=== PATIENT | male | born 1965 | race African-American/Black ===

== ENCOUNTER 2016-05-31 16:14 | Inpatient (IN) | payer MEDICARE, OTHER ==
[~2016-05-31] VITALS: Ht 180.3 cm; Wt 85.0 kg
[~2016-05-31 16:14] MED LIST: MELO15TA2 PO
[2016-05-31] MEDS ORDERED: ONDANSETRON HCL 4 MG/2 ML VIAL IVP ONE (16:30)
[2016-05-31] MEDS ORDERED: SODIUM CHLORIDE 0.9% FLUSH 5 ML FLUSH IVF PRN (16:30)
[2016-05-31] MEDS ORDERED: SODIUM CHLOR 0.9% 1000 ML INJ 1,000 ML IV ONE ×2 (16:30→18:30)
[2016-05-31] MEDS ORDERED: HYDROmorphone HCL PF 2 MG/ML VIAL IVS ONE (16:30)
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
[2016-05-31 16:36] VITALS: BP 128/99; PULSE 72; RESP 20; TEMP 98.3; O2SAT 100
[2016-05-31 16:45] LABS: AUTOMATED NEUTROPHIL # 6.6 TH/MM3 (1.8-7.7); BASOPHIL # 0.1 TH/MM3 (0-0.2); BASOPHIL % 0.7 % (0.0-2.0); EOSINOPHIL # 0.1 TH/MM3 (0-0.4); EOSINOPHIL % 0.6 % (0.0-4.0); HEMATOCRIT 46.5 % (39.0-51.0); HEMO FLAGS DIFF FINAL; LYMPH % 24.4 % (9.0-44.0); LYMPHOCYTE # 2.4 TH/MM3 (1.0-4.8); MEAN CELL VOLUME 90.2 FL (80.0-100.0); MEAN CORPUSCULAR HEMOGLOBIN 30.3 PG (27.0-34.0); MEAN CORPUSCULAR HGB CONC 33.6 % (32.0-36.0); MONO % 6.8 % (0.0-8.0); NEUT % 67.5 % (16.0-70.0); PLATELET COUNT 249 TH/MM3 (150-450); RED BLOOD COUNT 5.15 MIL/MM3 (4.50-5.90); RED CELL DISTRIBUTION WIDTH 14.1 % (11.6-17.2); WHITE BLOOD COUNT 9.8 TH/MM3 (4.0-11.0)
[2016-05-31 17:51] LABS: ALKALINE PHOSPHATASE 57 U/L (45-117); ALT (GPT) 32 U/L (12-78); ANION GAP 14 MEQ/L (5-15); AST (GOT) 38 U/L (15-37); BICARBONATE 23.6 MEQ/L (21.0-32.0); BLOOD UREA NITROGEN 11 MG/DL (7-18); CHLORIDE 105 MEQ/L (98-107); GLOMERULAR FILTRATION RATE 70 ML/MIN (>89); SODIUM (NA) 143 MEQ/L (136-145); TOTAL BILIRUBIN ADULT 0.4 MG/DL (0.2-1.0)
[2016-05-31] MEDS ORDERED: ONDANSETRON HCL 4 MG/2 ML VIAL IV ONE (18:30)
[2016-05-31] MEDS ORDERED: MORPHINE SULFATE 4 MG/ML INJ IV PUSH ONE (18:30)
[2016-05-31 18:48] VITALS: BP 166/78; PULSE 50; RESP 20; O2SAT 94
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
[2016-05-31 19:17] VITALS: BP 145/87; PULSE 55; RESP 16; O2SAT 98
[2016-05-31] MEDS ORDERED: ONDANSETRON HCL 4 MG/2 ML VIAL IV PRN (19:30)
[2016-05-31] MEDS ORDERED: LORazepam 1 MG TAB PO PRN (19:30)
[2016-05-31] MEDS ORDERED: LORazepam 2 MG TAB PO PRN (19:30)
[2016-05-31] MEDS ORDERED: LORazepam 2 MG/ML VIAL IV PUSH PRN ×4 (19:30)
[2016-05-31] MEDS ORDERED: FLUMAZENIL 0.5 MG/5 ML VIAL IV PUSH PRN (19:30)
[2016-05-31] MEDS ORDERED: NALOXONE HCL 0.4 MG/ML AMP IV PRN (19:30)
[2016-05-31] MEDS: LACTATED RINGER'S 1000 ML INJ 1,000 ML IV SCH (20:01)
[2016-05-31] MEDS: ENOXAPARIN SODIUM 40 MG/0.4 ML SYRINGE SQ SCH (20:01)
[2016-05-31] MEDS: THIAMINE INJ 100 MG in SODIUM CHLORIDE 0.9% INJ 100 ML IV SCH (20:01)
[2016-05-31] MEDS: HYDROmorphone HCL PF 1 MG/ML VIAL IV PRN (20:10)
[2016-05-31] MEDS: KETOROLAC TROMETHAMINE 30 MG/ML (IVP) VIAL IVP SCH (21:13)
[2016-05-31] MEDS: MULTIVITAMIN INJ 10 ML, FOLIC ACID INJ 1 MG in SODIUM CHLORID 0.9% 500 ML INJ 500 ML IV SCH (21:13)
[2016-05-31 21:49] VITALS: BP 133/75; PULSE 58; O2SAT 93
[2016-06-01] MEDS: MORPHINE SULFATE 4 MG/ML INJ IV PUSH PRN ×2 (00:38→03:12)
[2016-06-01] MEDS: LACTATED RINGER'S 1000 ML INJ 1,000 ML IV SCH ×6 (00:39→21:59)
[2016-06-01 01:53] VITALS: BP 130/71; PULSE 51; O2SAT 97
[2016-06-01 04:43] VITALS: BP 145/66; PULSE 63; O2SAT 94
[2016-06-01 04:48] LABS: AUTOMATED NEUTROPHIL # 4.5 TH/MM3 (1.8-7.7); BASOPHIL % 0.4 % (0.0-2.0); EOSINOPHIL # 0.1 TH/MM3 (0-0.4); EOSINOPHIL % 2.4 % (0.0-4.0); HEMATOCRIT 43.6 % (39.0-51.0); HEMO FLAGS DIFF FINAL; LYMPH % 16.9 % (9.0-44.0); MEAN CELL VOLUME 89.5 FL (80.0-100.0); MEAN CORPUSCULAR HEMOGLOBIN 30.6 PG (27.0-34.0); MEAN CORPUSCULAR HGB CONC 34.2 % (32.0-36.0); NEUT % 74.3 % (16.0-70.0); PLATELET COUNT 208 TH/MM3 (150-450); RED BLOOD COUNT 4.87 MIL/MM3 (4.50-5.90); RED CELL DISTRIBUTION WIDTH 14.3 % (11.6-17.2); WHITE BLOOD COUNT 6.1 TH/MM3 (4.0-11.0)
[2016-06-01 05:10] LABS: ALT (GPT) 23 U/L (12-78); ANION GAP 8 MEQ/L (5-15); AST (GOT) 26 U/L (15-37); BICARBONATE 25.8 MEQ/L (21.0-32.0); BLOOD UREA NITROGEN 8 MG/DL (7-18); CHLORIDE 109 MEQ/L (98-107); GLOMERULAR FILTRATION RATE 99 ML/MIN (>89); POTASSIUM 4.4 MEQ/L (3.5-5.1); SODIUM (NA) 143 MEQ/L (136-145)
[2016-06-01 05:13] LABS: ALKALINE PHOSPHATASE 48 U/L (45-117); TOTAL BILIRUBIN ADULT 0.6 MG/DL (0.2-1.0)
[2016-06-01] MEDS: KETOROLAC TROMETHAMINE 30 MG/ML (IVP) VIAL IVP SCH ×3 (05:35→21:59)
[2016-06-01] MEDS: HYDROmorphone HCL PF 1 MG/ML VIAL IV PRN ×3 (05:39→15:53)
[2016-06-01 09:01] VITALS: BP 145/67; PULSE 50; RESP 20; O2SAT 95
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
[2016-06-01] MEDS: ENOXAPARIN SODIUM 40 MG/0.4 ML SYRINGE SQ SCH (20:00)
[2016-06-01 20:30] VITALS: BP 142/74; PULSE 62; RESP 20; TEMP 99.8; O2SAT 95
[2016-06-01] MEDS: THIAMINE INJ 100 MG in SODIUM CHLORIDE 0.9% INJ 100 ML IV SCH (20:53)
[2016-06-01] MEDS: MULTIVITAMIN INJ 10 ML, FOLIC ACID INJ 1 MG in SODIUM CHLORID 0.9% 500 ML INJ 500 ML IV SCH (21:56)
[2016-06-02 00:30] VITALS: BP 131/73; PULSE 61; RESP 18; TEMP 98.8; O2SAT 95
[2016-06-02 04:30] VITALS: BP 133/71; PULSE 60; RESP 18; TEMP 98.4; O2SAT 95
[2016-06-02 04:42] VITALS: BP 133/71; PULSE 60; RESP 18; TEMP 98.4; O2SAT 95
[2016-06-02] MEDS: KETOROLAC TROMETHAMINE 30 MG/ML (IVP) VIAL IVP SCH (06:02)
[2016-06-02] MEDS: LACTATED RINGER'S 1000 ML INJ 1,000 ML IV SCH (06:02)
[2016-06-02] MEDS ORDERED: HYDR-3533 PO (08:20)
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
--- NOTE | 2016-06-02 08:22 | HHI.FPPN ---
Subjective Remarks Patient seen and examined this morning. AFVSS. No acute events overnight. Tolerating clears with no issue. Pain resolved. Having normal BMs and urinating without issues. No nausea or vomiting. Feels ready to go home. Ambulating without issues. States he is not going to be drinking any alcohol and declines any rehab services or medications at this time. Reports in the past he cut alcohol cold turkey and has never gone into withdrawals. (Sharon Rivers MD) Objective Vitals Vital Signs Date Time Temp Pulse Resp B/P Pulse Ox O2 Delivery O2 Flow Rate FiO2 06/02/16 04:42 98.4 60 18 133/71 95 06/02/16 00:30 98.8 61 18 131/73 95 06/01/16 23:29 18 06/01/16 20:30 99.8 62 20 142/74 95 06/01/16 09:01 50 20 145/67 95 (Sharon Rivers MD) Result Diagram: 06/01/16 0342 06/01/16 0342 Objective Remarks GENERAL: WN, WD male, pleasant, conversant, NAD. SKIN: Warm and dry without diaphoresis. HEENT: Pupils equal and round. No scleral icterus or conjunctival injection. MMM. HEART: RRR no m/r/g. LUNGS: CTAB without wheezes or crackles. ABDOMEN: +BS, soft, NT, ND. EXTREMITIES: No LE edema. NEURO: Awake and alert. Normal gait. No tremors. PSYCH: Appropriate mood and affect. (Sharon Rivers MD) A/P Assessment and Plan 50 year old male admitted on 05/31 for alcoholic pancreatitis. He was treated with aggressive IV fluids, pain control, and NPO. His pain, nausea, and vomiting subsided and his diet was advanced. He has clinically improved and is stable for discharge today. Discharge Planning D/C home today. (Sharon Rivers MD) Attending Attestation Patient seen and examined. Case reviewed and discussed with the resident team. Agree with plan of care as discussed with me and documented in the resident note. (Judy Stone MD) Problem List: (1) Acute alcoholic pancreatitis Status: Acute Plan: Patient presented with epigastric pain, nausea, and vomiting after consuming 10-12 alcohol beverages daily. Lipase elevated to 2571. LDH not tested but Loxley score essentially zero on admission. - All symptoms have resolved - Tolerating clears. Advance to regular diet - D/C home on Lortab PRN - Counseled on alcohol cessation (2) Alcohol abuse Status: Acute Plan: Patient placed on CIWA protocol but has not required any Ativan. No signs of withdrawal on exam and no hemodynamic instability. - Rally packed - Counseled on alcohol cessation, which he agrees to do (3) FEN/PPX Status: Acute Plan: - Fluids: D/C IVF since tolerating PO - Electrolytes: WNL - Nutrition: Advance to regular diet dw Dr. Stone (Sharon Rivers MD) Problem List: (1) Acute alcoholic pancreatitis Status: Acute Plan: Patient presented with epigastric pain, nausea, and vomiting after consuming 10-12 alcohol beverages daily. Lipase elevated to 2571. LDH not tested but Loxley score essentially zero on admission. - All symptoms have resolved - Tolerating clears. Advance to regular diet - D/C home on Lortab PRN - Counseled on alcohol cessation (2) Alcohol abuse Status: Acute Plan: Patient placed on CIWA protocol but has not required any Ativan. No signs of withdrawal on exam and no hemodynamic instability. - Rally packed - Counseled on alcohol cessation, which he agrees to do (3) FEN/PPX Status: Acute Plan: - Fluids: D/C IVF since tolerating PO - Electrolytes: WNL - Nutrition: Advance to regular diet ignacia Stone (Judy Stone MD) Problem Qualifiers (1) Acute alcoholic pancreatitis: Qualified Code: K85.20 - Alcohol-induced acute pancreatitis without infection or necrosis Sharon Rivers MD Jun 02, 2016 08:22 Judy Stone MD Jun 06, 2016 14:16
[2016-06-02 08:37] VITALS: BP 120/86; PULSE 52; RESP 18; TEMP 99.1; O2SAT 96
--- NOTE | 2016-06-02 10:20 | HHI.DS ---
Discharge Summary Admission Date May 31, 2016 at 18:47 Discharge Date: Jun 02, 2016 Admitting Diagnosis alcoholic pancreatitis (1) Acute alcoholic pancreatitis Plan: Patient presented with epigastric pain, nausea, and vomiting after consuming 10-12 alcohol beverages daily. Lipase elevated to 2571. LDH not tested but Andie score essentially zero on admission. - All symptoms have resolved - Tolerating clears. Advance to regular diet - D/C home on Lortab PRN - Counseled on alcohol cessation (2) Alcohol abuse Plan: Patient placed on CIWA protocol but has not required any Ativan. No signs of withdrawal on exam and no hemodynamic instability. - Rally packed - Counseled on alcohol cessation, which he agrees to do Brief History Mr Goldberg is a 50-year-old male with history of alcohol related pancreatitis who presented with severe 10 out of 10 epigastric nonradiating constant pain since the morning of admission. The night before admission he drank 8-12 beers and went to bed as normal. He had no liquor. Moving makes the pain worse. Morphine made the pain better. His last drink was yesterday morning and he thought this would help his pain. He knows this is pancreatitis. He was feeling improved overall this am and had little to no pain. He drank some fluids earlier but started vomiting when I was in the room with him. He reports that he quit drinking for years but "was with the wrong people and started back" but he states he knows how to quit and will abstain from now on. he declines any other help for quitting at this time. CBC/BMP: 06/01/16 0342 06/01/16 0342 Significant Findings Laboratory Tests Test 05/31/16 06/01/16 16:38 03:42 Creatinine 1.31 MG/DL (0.60-1.30) Estimat Glomerular Filtration 70 ML/MIN (>89) Rate Aspartate Amino Transf 38 U/L (15-37) (AST/SGOT) Lipase 2571 U/L (73-393) Ethyl Alcohol Level 15 MG/DL (0-5) Neutrophils (%) (Auto) 74.3 % (16.0-70.0) Chloride Level 109 MEQ/L (98-107) Calcium Level 8.0 MG/DL (8.5-10.1) Total Protein 5.9 GM/DL (6.4-8.2) Albumin 3.0 GM/DL (3.4-5.0) PE at Discharge GENERAL: WN, WD male, pleasant, conversant, NAD. SKIN: Warm and dry without diaphoresis. HEENT: Pupils equal and round. No scleral icterus or conjunctival injection. MMM. HEART: RRR no m/r/g. LUNGS: CTAB without wheezes or crackles. ABDOMEN: +BS, soft, NT, ND. EXTREMITIES: No LE edema. NEURO: Awake and alert. Normal gait. No tremors. PSYCH: Appropriate mood and affect. Hospital Course 50 year old male admitted on 05/31/16 for alcoholic pancreatitis. He was treated with aggressive IV fluids, pain control, and NPO. His pain, nausea, and vomiting subsided and his diet was advanced. He was put on CIWA protocol for alcohol abuse but did not show any signs of alcohol withdrawal during his admission. He clinically improved and was discharged in stable condition on 06/02/16. Pt Condition on Discharge: Stable Discharge Disposition: Discharge Home Discharge Instructions DIET: Follow Instructions for: As Tolerated, No Restrictions Activities you can perform: Regular-No Restrictions Follow up Referrals: Physician - 1 Week with Sharon Rivers MD New Medications: Hydrocodone-Acetaminophen (Lortab) 5-325 Mg Tab 1-2 TAB PO Q6H PRN PAIN #20 Ref 0 TAB Sharon Rivers MD Jun 02, 2016 10:19
--- NOTE | 2016-06-02 15:45 | EKG ---
Date Performed: 06/01/2016 Time Performed: 12:41:09 PTAGE: 50 years EKG: SINUS BRADYCARDIA BORDERLINE ECG PREVIOUS TRACING : 06/23/2014 10.53 No significant change from previous tracing noted. DOCTOR: Bruce Sanz Interpretating Date/Time 06/02/2016 15:44:37
[2016-06-04] MEDS ORDERED: THIAMINE HCL 100 MG TAB PO SCH (09:00)
== END 2016-06-02 15:04 | disposition home or self-care (01) | DRG 440 ==
LOC: NEPE 16:14 → NEDA 18:47 → NEPFCDU 21:18
PROVIDERS: ADMIT Family Medicine; ATTEND Family Medicine
DX: K85.20 Alcohol induced acute pancreatitis without necrosis or infection (principal); F20.9 Schizophrenia, unspecified; F10.229 Alcohol dependence with intoxication, unspecified; F17.210 Nicotine dependence, cigarettes, uncomplicated; F12.90 Cannabis use, unspecified, uncomplicated; Y90.0 Blood alcohol level of less than 20 mg/100 ml
CPT/HCPCS: 80053; 80320; 83690; 85025; 93005; 96361; 96374; 96375; 96376; J1170; J1650; J1885; J2270; J2405; J3411; J7030; J7040; J7120

== ENCOUNTER → 2016-12-29 | Outpatient (CLI) | payer MEDICARE, OTHER ==
[2016-12-29 10:30] LABS: ANION GAP 6 MEQ/L (5-15); AST (GOT) 21 U/L (15-37); BICARBONATE 27.6 MEQ/L (21.0-32.0); BLOOD UREA NITROGEN 11 MG/DL (7-18); CHLORIDE 104 MEQ/L (98-107); GLOMERULAR FILTRATION RATE 75 ML/MIN (>89); GLUCOSE,FASTING 97 MG/DL (74-99); POTASSIUM 4.3 MEQ/L (3.5-5.1); SODIUM (NA) 138 MEQ/L (136-145)
[2016-12-29 10:36] LABS: ALKALINE PHOSPHATASE 64 U/L (45-117); ALT (GPT) 25 U/L (12-78); HDL CHOLESTEROL 92.9 MG/DL (40.0-60.0); LDL CHOLESTEROL 20 MG/DL (0-99); TOTAL BILIRUBIN ADULT 0.7 MG/DL (0.2-1.0)
== END ==
LOC: CLAB 09:17
DX: K86.1 Other chronic pancreatitis (principal); Z87.898 Personal history of other specified conditions
CPT/HCPCS: 36415; 80053; 80061

== ENCOUNTER 2017-02-13 11:12 | Inpatient (IN) | payer MEDICARE, OTHER ==
[~2017-02-13] VITALS: Ht 180.3 cm; Wt 80.0 kg
[2017-02-13] MEDS ORDERED: IOHEXOL 350 MG/ML 10 ML VIAL (for RAD DIAG) IVCONTRAST ONE (11:13)
[2017-02-13 11:14] VITALS: BP 153/98; PULSE 56; RESP 17; TEMP 98.1; O2SAT 99
[2017-02-13] MEDS ORDERED: SODIUM CHLOR 0.9% 1000 ML INJ 1,000 ML IV SCH (11:31)
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
[2017-02-13] MEDS ORDERED: SODIUM CHLORIDE 0.9% FLUSH 10 ML FLUSH IV FLUSH PRN ×2 (11:45→14:00)
[2017-02-13] MEDS ORDERED: MORPHINE SULFATE 4 MG/ML INJ IV PUSH ONE ×2 (11:45→13:30)
[2017-02-13] MEDS ORDERED: ONDANSETRON HCL 4 MG/2 ML VIAL IVP ONE (11:45)
[2017-02-13 11:54] LABS: AUTOMATED NEUTROPHIL # 5.3 TH/MM3 (1.8-7.7); BASOPHIL % 0.3 % (0.0-2.0); EOSINOPHIL # 0.2 TH/MM3 (0-0.4); EOSINOPHIL % 2.6 % (0.0-4.0); HEMATOCRIT 44.5 % (39.0-51.0); HEMO FLAGS DIFF FINAL; LYMPHOCYTE # 1.6 TH/MM3 (1.0-4.8); MEAN CELL VOLUME 90.5 FL (80.0-100.0); MEAN CORPUSCULAR HEMOGLOBIN 30.8 PG (27.0-34.0); MONO % 8.1 % (0.0-8.0); PLATELET COUNT 231 TH/MM3 (150-450); RED BLOOD COUNT 4.91 MIL/MM3 (4.50-5.90); RED CELL DISTRIBUTION WIDTH 15.3 % (11.6-17.2); WHITE BLOOD COUNT 7.8 TH/MM3 (4.0-11.0)
[2017-02-13 11:57] VITALS: O2SAT 97
[2017-02-13 12:02] LABS: APTT (PATIENT) 31.7 SEC (24.3-30.1); PROTHROMBIN TIME - PATIENT 11.2 SEC (9.8-11.6)
[2017-02-13 12:14] LABS: ALT (GPT) 25 U/L (12-78); ANION GAP 7 MEQ/L (5-15); AST (GOT) 20 U/L (15-37); BICARBONATE 26.3 MEQ/L (21.0-32.0); BLOOD UREA NITROGEN 7 MG/DL (7-18); CHLORIDE 104 MEQ/L (98-107); GLOMERULAR FILTRATION RATE 99 ML/MIN (>89); POTASSIUM 4.1 MEQ/L (3.5-5.1); SODIUM (NA) 137 MEQ/L (136-145)
[2017-02-13 12:16] LABS: ALKALINE PHOSPHATASE 58 U/L (45-117); TOTAL BILIRUBIN ADULT 0.5 MG/DL (0.2-1.0)
--- NOTE | 2017-02-13 13:11 | RADRPT ---
EXAM DATE/TIME: 02/13/2017 12:39 [facility] COMPARISON: CT ABDOMEN & PELVIS W CONTRAST, November 16, 2013, 20:36. INDICATIONS : Left upper quadrant pain, vomiting. IV CONTRAST: 96 cc Omnipaque 350 (iohexol) IV ORAL CONTRAST: No oral contrast ingested. RADIATION DOSE: 7.23 CTDIvol (mGy) MEDICAL HISTORY : Pancreatitis. SURGICAL HISTORY : None. ENCOUNTER: Initial ACUITY: 2 days PAIN SCALE: 7/10 LOCATION: Left upper quadrant TECHNIQUE: Volumetric scanning of the abdomen and pelvis was performed. Using automated exposure control and ad justment of the mA and/or kV according to patient size, radiation dose was kept as low as reasonably achievable to obtain optimal diagnostic quality images. DICOM format image data is available electro nically for review and comparison. FINDINGS: There is scarring at the lung bases. The osseous structures demonstrate degenerative changes of the s pine. There are no pleural or pericardial effusions. Cholelithiasis is noted. Liver, spleen, adrenals , kidneys are unremarkable. No bowel obstruction. Bladder unremarkable. Atherosclerotic calcification s of the aorta and iliac vessels. There is a tiny fat-containing umbilical hernia. There are moderate inflammatory changes seen are surrounding the entire pancreas with induration in the peripancreatic fat as well as fluid in the pararenal spaces and trace free fluid in the pelvis. This is characterist ic of pancreatitis. No obvious dilated ducts. CONCLUSION: 1. Acute pancreatitis. 2. Cholelithiasis. 3. Atherosclerosis. Cresencio Bill MD on February 13, 2017 at 13:08 Board Certified Radiologist. This report was verified electronically.
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
[2017-02-13] MEDS ORDERED: SODIUM CHLORID 0.9% 500 ML INJ 500 ML IV ONE (14:00)
[2017-02-13] MEDS ORDERED: ONDANSETRON HCL 4 MG/2 ML VIAL IV PUSH PRN (14:00)
[2017-02-13] MEDS: SODIUM CHLOR 0.9% 1000 ML INJ 1,000 ML IV SCH ×2 (14:57→17:49)
[2017-02-13 15:00] VITALS: BP 135/62; PULSE 45; RESP 16; TEMP 98.4; O2SAT 99
[2017-02-13] MEDS: MORPHINE SULFATE 8 MG/ML INJ IV PUSH PRN ×3 (15:27→23:21)
[2017-02-13] MEDS: NICOTINE 21 MG/24 HR PATCH T-DERMAL SCH (15:32)
[2017-02-13] MEDS: ENOXAPARIN SODIUM 30 MG/0.3 ML SYRINGE SQ SCH (15:32)
[2017-02-13 16:00] VITALS: BP 159/73; PULSE 50; RESP 18; TEMP 97.3; O2SAT 98
--- NOTE | 2017-02-13 16:01 | EKG ---
Date Performed: 02/13/2017 Time Performed: 11:34:37 PTAGE: 51 years EKG: SINUS BRADYCARDIA Compared to prior tracing no significant change BORDERLINE ECG PREVIOUS TRACING : 06/01/2016 12.41 DOCTOR: Juan Pablo Lunsford Interpretating Date/Time 02/13/2017 15:59:58
[2017-02-13] MEDS: SODIUM CHLORIDE 0.9% FLUSH 10 ML FLUSH IV FLUSH SCH (19:36)
[2017-02-13 21:19] VITALS: BP 136/71; PULSE 55; RESP 18; TEMP 97.8; O2SAT 97
[2017-02-13 23:49] LABS: BLOOD, URINE NEG (NEG); GLUCOSE,URINE NEG (NEG); KETONE, URINE NEG (NEG); NITRITE,URINE NEG (NEG); PH, URINE 5.5 (5.0-8.5); URINE COLOR YELLOW (YELLW/STRAW)
[2017-02-14] VITALS: BP 134/72; PULSE 62; RESP 18; TEMP 97.7; O2SAT 97
[2017-02-14 00:05] LABS: BACTERIA, URINE RARE /hpf; COMMENT (UR) CULT NOT INDICATED; CULTURE IF INDICATED CULT NOT INDICATED; SQUAMOUS EPITHELIAL CELL URINE 0-5 /hpf (0-5); WBC, URINE 0-2 /hpf (0-5)
[2017-02-14] MEDS: MORPHINE SULFATE 8 MG/ML INJ IV PUSH PRN ×3 (04:42→14:15)
[2017-02-14] MEDS: SODIUM CHLOR 0.9% 1000 ML INJ 1,000 ML IV SCH (04:44)
[2017-02-14 06:47] LABS: AUTOMATED NEUTROPHIL # 4.5 TH/MM3 (1.8-7.7); BASOPHIL % 0.3 % (0.0-2.0); EOSINOPHIL # 0.3 TH/MM3 (0-0.4); EOSINOPHIL % 4.1 % (0.0-4.0); HEMATOCRIT 43.1 % (39.0-51.0); HEMO FLAGS DIFF FINAL; LYMPH % 20.6 % (9.0-44.0); LYMPHOCYTE # 1.4 TH/MM3 (1.0-4.8); MEAN CELL VOLUME 91.5 FL (80.0-100.0); MEAN CORPUSCULAR HEMOGLOBIN 30.9 PG (27.0-34.0); MEAN CORPUSCULAR HGB CONC 33.8 % (32.0-36.0); MONO % 9.2 % (0.0-8.0); NEUT % 65.8 % (16.0-70.0); PLATELET COUNT 208 TH/MM3 (150-450); RED BLOOD COUNT 4.72 MIL/MM3 (4.50-5.90); RED CELL DISTRIBUTION WIDTH 15.3 % (11.6-17.2); WHITE BLOOD COUNT 6.8 TH/MM3 (4.0-11.0)
[2017-02-14 08:00] VITALS: BP 127/71; PULSE 51; RESP 18; TEMP 96.8; O2SAT 99
[2017-02-14] MEDS ORDERED: REMOVE OLD PATCH T-DERMAL SCH (09:00)
[2017-02-14 10:05] VITALS: PULSE 62; RESP 18
[2017-02-14] MEDS: NICOTINE 21 MG/24 HR PATCH T-DERMAL SCH (10:06)
[2017-02-14] MEDS: SODIUM CHLORIDE 0.9% FLUSH 10 ML FLUSH IV FLUSH SCH (10:07)
[2017-02-14 12:00] VITALS: BP 131/76; PULSE 51; RESP 17; TEMP 98.2; O2SAT 98
--- NOTE | 2017-02-14 12:31 | HHI.PR ---
Subjective Remarks Patient states he is hungry and requested to leave the hospital if he does not eat. He states his pain is much better. Objective Vitals Vital Signs Date Time Temp Pulse Resp B/P (MAP) Pulse Ox O2 Delivery O2 Flow Rate FiO2 02/14/17 10:13 18 02/14/17 10:05 62 18 02/14/17 08:00 96.8 51 18 127/71 (89) 99 02/14/17 08:00 96.8 51 18 127/71 (89) 99 02/14/17 00:00 97.7 62 18 134/72 (92) 97 02/13/17 21:19 97.8 55 18 136/71 (92) 97 02/13/17 16:00 97.3 50 18 159/73 (101) 98 02/13/17 15:00 98.4 45 16 135/62 (86) 99 Room Air I/O 02/13/17 02/13/17 02/13/17 02/14/17 02/14/17 02/14/17 07:00 15:00 23:00 07:00 15:00 23:00 Intake Total 1000 ml 500 ml 1000 ml Balance 1000 ml 500 ml 1000 ml Intake IV Total 1000 ml 500 ml 1000 ml # Voids 1 # Bowel Movements 0 Result Diagram: 02/14/17 0435 02/13/17 1147 Imaging Last Impressions Abdomen/Pelvis CT 02/13/17 1131 Signed Impressions: Service Date/Time: Monday, February 13, 2017 12:39 - CONCLUSION: 1. Acute pancreatitis. 2. Cholelithiasis. 3. Atherosclerosis. Cresencio Bill MD Objective Remarks GENERAL: This is a well-nourished, well-developed patient, in no apparent distress. CARDIOVASCULAR: Normal rate and regular rhythm without murmurs, gallops, or rubs. RESPIRATORY: Good respiratory efforts. Breath sounds equal and clear to auscultation bilaterally. GASTROINTESTINAL: Abdomen soft, non-tender, non-distended. Normal active bowel sounds MUSCULOSKELETAL: Extremities without cyanosis, or edema. NEURO: Alert & Oriented x4 to person, place, time, situation. Moves all ext x4 PSYCH: Appropriate mood and affect. A/P Problem List: (1) Hypertension ICD Code: I10 - Essential (primary) hypertension Status: Chronic (2) Acute alcoholic pancreatitis ICD Code: K85.20 - Alcohol-induced acute pancreatitis Status: Acute (3) Alcohol abuse ICD Code: F10.10 - Alcohol abuse Status: Chronic (4) Tobacco abuse ICD Code: Z72.0 - Tobacco abuse Status: Chronic Assessment and Plan 51-year-old male admitted with alcoholic pancreatitis. Although his lipase went up slightly, he requested to eat and is requesting to go home. Will allow him to try a low fat full liquid diet. If he remains pain-free, he can be discharged home. Patient was strongly advised to stop drinking alcohol. Discharge Planning Discharge home in good condition Activity: Regular as tolerated Diet: Low-fat Follow-up with: PCP Meds: Per med rec Problem Qualifiers (1) Acute alcoholic pancreatitis: Qualified Codes: K85.20 - Alcohol induced acute pancreatitis without necrosis or infection Haresh Abdi MD Feb 14, 2017 12:31
[2017-02-14 14:13] VITALS: PULSE 60; RESP 17
[2017-02-14] MEDS: ENOXAPARIN SODIUM 30 MG/0.3 ML SYRINGE SQ SCH (14:17)
[2017-02-14 16:00] VITALS: BP 134/76; PULSE 67; RESP 17; TEMP 98; O2SAT 98
== END 2017-02-14 17:34 | disposition home or self-care (01) | DRG 440 ==
LOC: NEPE 11:12 → NEDA 13:40 → OBSVTOIN 13:59 → N07B 15:15
PROVIDERS: ADMIT Family Medicine; ATTEND Family Medicine
DX: K85.20 Alcohol induced acute pancreatitis without necrosis or infection (principal); F20.9 Schizophrenia, unspecified; I10 Essential (primary) hypertension; R00.1 Bradycardia, unspecified; K80.20 Calculus of gallbladder without cholecystitis without obstruction; F17.210 Nicotine dependence, cigarettes, uncomplicated; K21.9 Gastro-esophageal reflux disease without esophagitis; Z87.820 Personal history of traumatic brain injury; K86.1 Other chronic pancreatitis; F10.10 Alcohol abuse, uncomplicated; F43.10 Post-traumatic stress disorder, unspecified; F12.90 Cannabis use, unspecified, uncomplicated; Z53.29 Procedure and treatment not carried out because of patient's decision for other reasons
CPT/HCPCS: 74177; 80053; 80307; 81001; 83690; 85025; 85610; 85730; 93005; 96374; 96375; J1650; J2270; J2405; J7030; J7040; Q9967

== ENCOUNTER 2017-08-29 17:55 | Emergency (ER) | payer MEDICARE, OTHER ==
[~2017-08-29] VITALS: Ht 180.3 cm; Wt 65.0 kg
[2017-08-29 18:21] VITALS: BP 153/67; PULSE 72; RESP 16; TEMP 98; O2SAT 100
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
== END 2017-08-29 20:41 | disposition home or self-care (01) ==
LOC: NEPD 17:55
DX: S91.311A Laceration without foreign body, right foot, initial encounter (principal); K21.9 Gastro-esophageal reflux disease without esophagitis; F20.9 Schizophrenia, unspecified; X99.1XXA Assault by knife, initial encounter; Y92.149 Unspecified place in prison as the place of occurrence of the external cause; Z87.19 Personal history of other diseases of the digestive system
CPT/HCPCS: 99282

== ENCOUNTER → 2017-09-06 | Outpatient (CLI) | payer MEDICARE, OTHER ==
[2017-09-06 16:52] LABS: ALKALINE PHOSPHATASE 72 U/L (45-117); ALT (GPT) 18 U/L (12-78); CREATININE 1.08 MG/DL (0.60-1.30); GLOMERULAR FILTRATION RATE 87 ML/MIN (>89); GLUCOSE,FASTING 81 MG/DL (74-99); TOTAL BILIRUBIN ADULT 0.5 MG/DL (0.2-1.0); TOTAL PROTEIN 7.8 GM/DL (6.4-8.2)
[2017-09-06 17:01] LABS: ALBUMIN 3.7 GM/DL (3.4-5.0); AST (GOT) 16 U/L (15-37); BLOOD UREA NITROGEN 7 MG/DL (7-18); CALCIUM 8.7 MG/DL (8.5-10.1); CHLORIDE 105 MEQ/L (98-107); SODIUM (NA) 141 MEQ/L (136-145)
== END ==
LOC: CLAB 16:14
PROVIDERS: ATTEND Family Medicine
DX: M25.572 Pain in left ankle and joints of left foot (principal)
CPT/HCPCS: 36415; 80053